=== PATIENT | male | born 1970 | race Caucasian/White ===

== ENCOUNTER 2020-05-23 16:30 | Emergency (ER) | payer OTHER ==
[~2020-05-23] VITALS: Ht 165.1 cm; Wt 64.4 kg
[2020-05-23 16:39] VITALS: BP 126/84
--- NOTE | 2020-05-23 17:28 | NUR ---
Patient aa/ox4, lapd left, ambulatory with steady gait. No distress noted.
--- NOTE | 2020-05-23 17:32 | NUR ---
patient refused treatment/ekg.
--- NOTE | 2020-05-23 17:32 | NUR ---
Patient does not wish to proceed with medical care recommended by Dr. Gunn. Patient given information related to possible complications, up to and including , which could occur as a result of leaving the hospital at this time. Patient verbalizes understanding of risks involved due to leaving against medical advice. Patient has signed AMA form.
== END 2020-05-23 17:46 | disposition left against medical advice (07) ==
LOC: ER 16:32
DX: F11.10 Opioid abuse, uncomplicated (principal); R00.0 Tachycardia, unspecified

== ENCOUNTER 2020-06-07 09:12 | Emergency (ER) | payer OTHER ==
[~2020-06-07] VITALS: Ht 162.6 cm; Wt 74.8 kg
[2020-06-07 09:30] VITALS: BP 132/86
--- NOTE | 2020-06-07 09:58 | NUR ---
Patient a/ox4, breathing even and unlabored, no sob noted, needs attended, kept comfortable. Patient discharged to [facility] in stable condition. Written and verbal after care instructions given. Patient verbalizes understanding of instruction.
== END 2020-06-07 09:58 ==
LOC: ER 09:13
DX: F11.13 Opioid abuse with withdrawal (principal)